=== PATIENT | female | born 1975 | race Caucasian/White ===

== ENCOUNTER 2018-04-06 13:30 | Emergency (ER) | payer BC, OTHER ==
[2018-04-06 13:41] VITALS: BMI 36.6
[2018-04-06] MEDS ORDERED: Labetalol 25mg/5ml Syringe IVP STA (14:01)
[2018-04-06] MEDS ORDERED: Labetalol 25mg/5ml Syringe ONE (14:07)
--- NOTE | 2018-04-06 14:11 | C.PDOC ---
History Of Present Illness 42 year old female with a history of hypertension taking Losartan daily presents to the ED complaining of headache ongoing for the past 4 days. Patient states her blood pressure has been elevated and her medication has not been working. Patient also has a history of asthma and complains of shortness of breath, wheezing, and chest discomfort associated with SOB. Time Seen by Provider: 04/06/18 13:53 Chief Complaint (Nursing): Headache History Per: Patient History/Exam Limitations: no limitations Onset/Duration Of Symptoms: Days Current Symptoms Are (Timing): Still Present Past Medical History Reviewed: Historical Data, Nursing Documentation, Vital Signs Vital Signs: Last Vital Signs Temp 98.1 F 04/06/18 13:42 Pulse 80 04/06/18 14:50 Resp 16 04/06/18 14:50 BP 143/81 04/06/18 14:50 Pulse Ox 96 04/06/18 14:50 - Medical History PMH: Asthma, Bronchitis, HTN Denies: Chronic Kidney Disease Surgical History: Family History: States: No Known Family Hx - Social History Hx Alcohol Use: No Hx Substance Use: No - Immunization History Hx Tetanus Toxoid Vaccination: No Review Of Systems Cardiovascular: Positive for: Chest Pain (mild chest discomfort ) Respiratory: Positive for: Shortness of Breath, Wheezing Neurological: Positive for: Headache Physical Exam - Physical Exam Appears: Non-toxic, Other (Mild distress ) Skin: Normal Color, Warm, Dry Head: Atraumatic, Normacephalic Eye(s): bilateral: Normal Inspection Nose: Normal Oral Mucosa: Moist Neck: Supple Chest: Symmetrical Cardiovascular: Rhythm Regular, No Murmur Respiratory: Rales (B/L basiral rales ), Wheezing (Diffused wheezing B/L ) Neurological/Psych: Oriented x3, Normal Speech, Normal Cognition, Normal Cranial Nerves, Cerebellar Signs, Normal Motor, Normal Sensation, Normal Reflexes, No Other (Focal deficits ) Gait: Steady Additional Physical Exam Comments: Hypertensive at 175/104 ED Course And Treatment - Laboratory Results Result Diagrams: 04/06/18 14:38 04/06/18 14:38 Lab Interpretation: No Acute Changes ECG: Interpreted By Me ECG Rhythm: Sinus Rhythm ECG Interpretation: No Acute Changes O2 Sat by Pulse Oximetry: 97 (RA) Pulse Ox Interpretation: Normal - Radiology CXR: Viewed By Me, Read By Radiologist CXR Interpretation: Yes: Other (mild vascular congestion) - CT Scan/US CT head Other Rad Studies (CT/US): Read By Radiologist, Radiology Report Reviewed CT/US Interpretation: Accession No. : [id number]. Patient Name / ID : EDGARDO HOUSER / [id number]. Exam Date : 04/06/2018 15:14:47 ( Approved ). Study Comment : Sex / Age : F / 42Y. Creator : Nati Fortune. Dictator : Nasir Juan MD. Physical Therapy Aide : Client Development Manager : Nasir Juan MD. Approver2 : Report Date : 04/06/2018 15:18:27. My Comment : . Date of service: 04/06/2018. PROCEDURE: CT HEAD WITHOUT CONTRAST. HISTORY: headache with elevated BP. COMPARISON: None available. TECHNIQUE: Axial computed tomography images were obtained through the head/brain without intravenous contrast. Radiation dose: Total exam DLP = 944 mGy-cm. This CT exam was performed using one or more of the following dose reduction techniques : Automated exposure control, adjustment of the mA and/or kV according to patient size, and/or use of iterative reconstruction technique. FINDINGS: HEMORRHAGE: No intracranial hemorrhage. BRAIN: No mass effect or edema. No atrophy or chronic microvascular ischemic changes. VENTRICLES: Unremarkable. No hydrocephalus. CALVARIUM: Unremarkable. PARANASAL SINUSES: Prominent mucosal opacification of the ethmoid air cells. MASTOID AIR CELLS: Unremarkable as visualized. No inflammatory changes. OTHER FINDINGS: None. IMPRESSION: No acute intracranial abnormality. Chronic sinus mucosal disease as above. If symptoms persists, consider MRI. Reevaluation Time: 16:37 Reassessment Condition: Improved (Vital signs normalized. Patient still c/o generalized headache. Treated with Tylenol.) Medical Decision Making Medical Decision Making: Orders: - CT head - EKG - Labs - CXR - Trandate 20mg IVP - HCG Disposition Counseled Patient/Family Regarding: Studies Performed, Diagnosis, Need For Followup, Rx Given - Disposition Referrals: [facility] [Outside] Disposition: HOME/ ROUTINE Disposition Time: 16:41 Condition: IMPROVED Prescriptions: hydroCHLOROthiazide [Microzide] 12.5 mg PO DAILY #60 cap Instructions: High Blood Pressure (DC), Headache, Adult (DC) Forms: [employer] (Urdu) - Clinical Impression Clinical Impression: Headache, Hypertension - Scribe Statement The provider has reviewed the documentation as recorded by the Scribrandall Bradford All medical record entries made by the Kishoreibrandall were at my direction and personally dictated by me. I have reviewed the chart and agree that the record accurately reflects my personal performance of the history, physical exam, medical decision making, and the department course for this patient. I have also personally directed, reviewed, and agree with the discharge instructions and disposition.
[2018-04-06] MEDS ORDERED: Albuterol 0.083% Inhal Sol (2.5 mg/3 mL) UD ONE (14:17)
[2018-04-06] MEDS ORDERED: Albuterol 0.083% Inhal Sol (2.5 mg/3 mL) UD INH STA (14:18)
[2018-04-06 14:43] LABS: BASO # 0.1 K/uL (0.0-0.2); BASO % 0.6 % (0.0-2.0); EOS # 0.8 K/uL (0.0-0.7); EOS % 7.9 % (0.0-4.0); LYMPH # 3.2 K/uL (1.0-4.3); LYMPH % 32.5 % (20.0-40.0); MEAN CELL VOLUME 86.8 fL (81.0-99.0); MEAN CORPUSCULAR HEMOGLOBIN 29.6 pg (27.0-31.0); MEAN CORPUSCULAR HGB CONC 34.1 g/dL (33.0-37.0); MEAN PLATELET VOLUME 8.1 fL (7.2-11.7); MONO # 0.9 K/uL (0.0-0.8); MONO % 9.7 % (0.0-10.0); NEUT # 4.8 K/uL (1.8-7.0); NEUT % 49.3 % (50.0-75.0); RBC 4.74 Mil/uL (3.80-5.20); RED CELL DISTRIBUTION WIDTH 14.4 % (11.5-14.5); WHITE BLOOD COUNT 9.7 K/uL (4.8-10.8)
[2018-04-06 14:56] LABS: ALB/GLOB RATIO 1.4 (1.0-2.1); ALBUMIN 4.1 g/dL (3.5-5.0); ALT/SGPT 44 U/L (9-52); AST/SGOT 29 U/L (14-36); BLOOD UREA NITROGEN 8 mg/dL (7-17); CALCIUM 9.1 mg/dl (8.6-10.4); GFR AFRICAN-AMERICAN > 60; GFR NON-AFRICAN AMERICAN > 60
[2018-04-06 15:08] LABS: B-TYPE NATRIURETIC PEPTIDE < 11.1 pg/mL (0-450)
--- NOTE | 2018-04-06 15:18 | RAD ---
Chest x-ray single frontal view History: Chest pain. Comparison: 08/29/2015 Findings: Mild venous congestion. Biapical pleural thickening. Heart size within normal limits. Bibasilar breast and nipple shadows. Degenerative changes in the spine. Impression: Mild venous congestion. Biapical pleural thickening.
--- NOTE | 2018-04-06 15:54 | CT ---
Date of service: 04/06/2018 PROCEDURE: CT HEAD WITHOUT CONTRAST. HISTORY: headache with elevated BP COMPARISON: None available. TECHNIQUE: Axial computed tomography images were obtained through the head/brain without intravenous contrast. Radiation dose: Total exam DLP = 944 mGy-cm. This CT exam was performed using one or more of the following dose reduction techniques: Automated exposure control, adjustment of the mA and/or kV according to patient size, and/or use of iterative reconstruction technique. FINDINGS: HEMORRHAGE: No intracranial hemorrhage. BRAIN: No mass effect or edema. No atrophy or chronic microvascular ischemic changes. VENTRICLES: Unremarkable. No hydrocephalus. CALVARIUM: Unremarkable. PARANASAL SINUSES: Prominent mucosal opacification of the ethmoid air cells. MASTOID AIR CELLS: Unremarkable as visualized. No inflammatory changes. OTHER FINDINGS: None. IMPRESSION: No acute intracranial abnormality. Chronic sinus mucosal disease as above. If symptoms persists, consider MRI.
[2018-04-06 16:37] VITALS: BP 133/88
[2018-04-06 17:01] VITALS: PULSE 82; RESP 24; TEMP 97.9; O2SAT 99
== END 2018-04-06 17:00 | disposition home or self-care (01) ==
LOC: C.ER 13:30
DX: R51 Headache (principal); I10 Essential (primary) hypertension